=== PATIENT | male | born 1970 | race Caucasian/White ===

== ENCOUNTER 2017-09-22 06:24 | Day surgery (SDC) | payer OTHER ==
[2017-09-22] MEDS ORDERED: SOD CHLORIDE 0.9% 1,000 ML IV (07:00)
[2017-09-22] MEDS ORDERED: CEFAZOLIN 2 GM/50 ML (PMX) 50 ML IVPB (07:00)
[2017-09-22] MEDS ORDERED: FENTAnyl 50 MCG/ML VIAL (08:51)
[2017-09-22] MEDS ORDERED: MIDAZOLAM 1 MG/ML 2 ML INJ (08:51)
[2017-09-22] MEDS ORDERED: LIDOCAINE 1% (MDV) 20 ML INJ (08:51)
[2017-09-22] MEDS ORDERED: PROPOFOL 20 ML (08:51)
[2017-09-22] MEDS ORDERED: ROPIVACAINE 0.2% 20 ML VIAL (08:54)
[2017-09-22] MEDS ORDERED: CEFAZOLIN 1 GM INJ (09:10)
[2017-09-22] MEDS ORDERED: FAMOTIDINE 20 MG INJ (09:13)
[2017-09-22] MEDS ORDERED: DEXAMETHASONE 4 MG/ML 1 ML INJ (09:13)
[2017-09-22] MEDS ORDERED: ONDANSETRON 4 MG INJ (09:13)
[2017-09-22] MEDS ORDERED: KETOROLAC 30 MG INJ (09:15)
[2017-09-22] MEDS ORDERED: PROVENTIL HFA 6.7GM INHALER (09:15)
[2017-09-22] MEDS: POLYMYXIN/BACITRACIN 1L IRRIG (09:33)
[2017-09-22] MEDS: BUPIVACAINE 0.25% (MPF) 30 ML INJ (09:33)
[2017-09-22] MEDS ORDERED: HYDROCODONE/APAP (5/325) TAB PO (10:00)
[2017-09-22] MEDS ORDERED: HYDROmorphONE 1 MG/5 ML IV SYRINGE IV ×2 (10:00→10:19)
[2017-09-22] MEDS: HYDROmorphONE 1 MG/5 ML IV SYRINGE IV (10:29)
== END 2017-09-22 11:21 | disposition home or self-care (01) ==
LOC: SDS 06:24
DX: K40.30 Unilateral inguinal hernia, with obstruction, without gangrene, not specified as recurrent (principal)
CPT/HCPCS: 49507

== ENCOUNTER 2017-11-28 13:00 | Day surgery (SDC) | payer OTHER ==
[2017-11-28 13:55] LABS: ADD MAN DIFF? NO
[2017-11-28 13:56] LABS: BASOPHILS % 0.5 % (0.0-2.0); EOSINOPHILS # 0.1 10^3/ul (0.0-0.5); EOSINOPHILS % 0.9 % (0.0-7.0); HEMATOCRIT 45.3 % (42.0-52.0); HEMOGLOBIN 15.8 g/dl (14.0-18.0); LYMPHOCYTES # 1.7 10^3/ul (0.8-2.9); LYMPHOCYTES % 30.4 % (15.0-51.0); MEAN CORPUSCULAR HEMOGLOBIN 31.2 pg (29.0-33.0); MEAN CORPUSCULAR HGB CONC 34.9 g/dl (32.0-37.0); MEAN CORPUSCULAR VOLUME 89.5 fl (82.0-101.0); MEAN PLATELET VOLUME 8.9 fl (7.4-10.4); MONOCYTE # 0.5 10^3/ul (0.3-0.9); MONOCYTES % 9.7 % (0.0-11.0); NEUTROPHIL # 3.2 10^3/ul (1.6-7.5); NEUTROPHILS % 58.3 % (39.0-77.0); PLATELET COUNT 253 10^3/UL (140-415); RED BLOOD COUNT 5.06 10^6/ul (4.70-6.10); RED CELL DISTRIBUTION WIDTH 12.3 % (11.5-14.5)
[2017-11-28 13:56] LABS: WHITE BLOOD COUNT 5.5 10^3/ul (4.8-10.8)
[2017-11-28] MEDS ORDERED: METOCLOPRAMIDE 10 MG INJ (14:07)
[2017-11-28] MEDS ORDERED: KETOROLAC 30 MG INJ (14:07)
[2017-11-28] MEDS ORDERED: ROPIVACAINE 0.5 % 30 ML VIAL (14:07)
[2017-11-28] MEDS ORDERED: ONDANSETRON 4 MG INJ (14:07)
[2017-11-28] MEDS ORDERED: PROPOFOL 20 ML (14:07)
[2017-11-28] MEDS ORDERED: MIDAZOLAM 1 MG/ML 2 ML INJ (14:07)
[2017-11-28] MEDS ORDERED: ROCURONIUM 50 MG INJ (14:07)
[2017-11-28 14:13] LABS: ALANINE AMINOTRANSFERASE 24 IU/L (13-69); ALBUMIN 4.1 g/dl (3.3-4.9); ALBUMIN/GLOBULIN RATIO 1.07; ALKALINE PHOSPHATASE 67 IU/L (42-121); ANION GAP 14 (8-16); ASPARTATE AMINO TRANSFERASE 26 IU/L (15-46); BILIRUBIN,INDIRECT 0.7 mg/dl (0-1.1); BILIRUBIN,TOTAL 0.7 mg/dl (0.2-1.3); BLOOD UREA NITROGEN 15 mg/dl (7-20); CALCIUM 9.2 mg/dl (8.4-10.2); CARBON DIOXIDE 24 mmol/L (21-31); CHLORIDE 110 mmol/L (97-110); CREATININE 0.89 mg/dl (0.61-1.24); GLUCOSE 85 mg/dl (70-220); SODIUM 144 mmol/L (135-144); TOTAL PROTEIN 7.9 g/dl (6.1-8.1)
[2017-11-28 14:16] LABS: INR 1.05; PROTIME 13.8 Sec (11.9-14.9); PT RATIO 1.1
[2017-11-28 14:17] LABS: PARTIAL THROMBOPLASTIN TIME 26.9 Sec (25.0-35.0)
[2017-11-28] MEDS ORDERED: DIPHENHYDRAMINE 50 MG INJ IV (14:30)
[2017-11-28] MEDS ORDERED: hydrALAzine 20 MG INJ IV (14:30)
[2017-11-28] MEDS ORDERED: ONDANSETRON 4 MG INJ IV (14:30)
[2017-11-28] MEDS ORDERED: LABETALOL HCL 20MG INJ IV (14:30)
[2017-11-28] MEDS ORDERED: OXYCODONE/ACETAMINOPHEN (5/325) TAB PO (14:30)
[2017-11-28] MEDS ORDERED: MEPERIDINE 25 MG INJ IV (14:30)
[2017-11-28] MEDS ORDERED: HYDROmorphONE 1 MG/5 ML IV SYRINGE IV ×3 (14:30)
[2017-11-28] MEDS ORDERED: SOD CHLORIDE 0.9% 1,000 ML IV (15:30)
[2017-11-28] MEDS ORDERED: ROPIVACAINE 0.2% 20 ML VIAL (16:03)
[2017-11-28] MEDS ORDERED: CEFAZOLIN 1 GM INJ (16:18)
[2017-11-28] MEDS: CEFAZOLIN 2 GM/50 ML (PMX) 50 ML IVPB (16:21)
[2017-11-28] MEDS: POLYMYXIN/BACITRACIN 1L IRRIG (16:38)
[2017-11-28] MEDS ORDERED: NEOSTIGMINE 3 MG/3 ML SYRINGE (16:46)
[2017-11-28] MEDS ORDERED: GLYCOPYRROLATE 0.4 MG INJ (16:46)
[2017-11-28] MEDS: HYDROCODONE/APAP (5/325) TAB PO (17:20)
[2017-11-28] MEDS ORDERED: ATROPINE 1 MG/10 ML SYRINGE (17:38)
[2017-11-28] MEDS: ATROPINE 1 MG/10 ML SYRINGE IV (17:40)
== END 2017-11-28 18:23 | disposition home or self-care (01) ==
LOC: SDS 13:00
DX: K40.30 Unilateral inguinal hernia, with obstruction, without gangrene, not specified as recurrent (principal)
CPT/HCPCS: 49507; 80053; 85025; 85610; 85730